=== PATIENT | female | born 1960 | race Two or more races ===

== ENCOUNTER 2024-04-01 19:02 | Emergency (ER) | payer MEDICARE, SELFPAY ==
[2024-04-01 19:02] VITALS: BMI 33.0
[2024-04-01 19:23] VITALS: BP 114/74; PULSE 80; RESP 18; TEMP 36.9; O2SAT 93
--- NOTE | 2024-04-01 19:33 | EKG_ITS ---
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
--- NOTE | 2024-04-01 19:33 | XR_ITS ---
Examination: CT abdomen with intravenous contrast CT pelvis with intravenous contrast 2-D coronal reconstructions 2-D sagittal reconstructions Date and time of exam:April 01, 2024 and 1:00 PM Indications: Abdominal pain vomiting diarrhea beginning 4 days ago Comparison: January 01, 2019. CTDI: vol (mGy) 5.35 DLP: (mGycm) 306 Technique: Multiple axial sections of the abdomen and pelvis have been obtained. 64 slice high-resolution scanner used. 3 mm axial sections have been obtained, post intravenous injection 60 cc [id number] 2-D sagittal, coronal reconstructions obtained. Low dose protocols were performed. One or more of the following dose reduction techniques were used; automated exposure control, adjustment of the mA and/or KV according to patient size, use of iterative reconstruction technique. Findings: Fatty infiltration throughout the liver, no focal liver lesions Spleen is not enlarged No pancreatic mass Gallbladder is not visualized No common bile duct stones Aorta is not enlarged No renal or ureteral calculi, no hydronephrosis Normal appendix No bowel obstruction The entire colon shows hyperemia and wall thickening Absent uterus Retroverted uterus Diffusely sclerotic L3 vertebral body Diffuse sclerosis left iliac bone with small radiolucencies in both posterior iliac bones, the largest osteolytic lesion in the left iliac bone 7 mm image 220 Sclerosis anterior inferior right pubic ramus Impression: Diffuse severe nonspecific colitis pattern Osseous metastatic disease as above, recommend repeat nuclear medicine bone scan and consider PET CT scan follow-up
--- NOTE | 2024-04-01 19:34 | EDRME_ITS ---
Rapid Medical Screening Exam [facility] Arrival date/time: 04/01/24 19:02 63F with history of cholecystectomy, ab hernia (upcoming surgery) and chronic nerve pain presents to ED with several days of worsening gen ab pain, N/V, non- bloody diarrhea, and weakness. Chief Complaint: Nausea/Vomiting/Diarrhea Vital signs: Vital Signs Temperature 98.4 F 04/01/24 19:23 Pulse Rate 80 04/01/24 19:23 Respiratory Rate 18 04/01/24 19:23 Blood Pressure 114/74 04/01/24 19:23 Pulse Oximetry (%) 93 L 04/01/24 19:23 Oxygen Delivery Method Room Air 04/01/24 19:23
--- NOTE | 2024-04-01 19:35 | XR_ITS ---
Examination: PA chest single view Technique: Upright PA chest single view Exam date and time: April 01, 20241952 hrs. Comparison January 30, 2022 Indications: Weakness vomiting beginning 4 days ago. Findings: Normal heart size Right subclavian Port-A-Cath tip SVC satisfactory position No pneumonia or pulmonary edema Impression: No active disease
[2024-04-01 19:58] LABS: Lactate (Lactic Acid) 0.8 mMol/L (0.4-2.0)
[2024-04-01 20:01] LABS: Basophils % (Auto) 0 % (0-2.5); Eosinophils # (Auto) 0.1 Thou/mm3 (0.0-0.5); Eosinophils % (Auto) 1 % (0-10); Hematocrit 40.5 % (36.0-46.0); Hemoglobin 13.7 g/dL (12.0-16.0); Immature Granulocytes % (Auto) 0 % (0-0); Immature Granulocytes Auto 0.02 Thou/mm3 (0.00-0.00); Lymphocytes # (Auto) 2.3 Thou/mm3 (1.0-4.8); Lymphocytes % (Auto) 23 % (10-50); Mean Corpuscular HGB Conc 33.8 g/dl (31.0-37.0); Mean Corpuscular Hemoglobin 31.1 pg (25.0-35.0); Mean Corpuscular Volume 92 fL (80-100); Monocytes # (Auto) 0.7 Thou/mm3 (0.0-0.8); Monocytes % (Auto) 7 % (0-12); Neutrophils # (Auto) 6.9 Thou/mm3 (1.8-7.7); Neutrophils % (Auto) 69 % (37-80); Nucleated Red Blood Cell % 0 /100 WBC (0); Platelet Count 241 Thou/mm3 (140-440); RDW Standard Deviation 40.6 fL (36.4-46.3)
[2024-04-01 20:23] LABS: Albumin, Serum 4.6 gm/dL (3.4-4.8); Albumin/Globulin Ratio 2.1 (1.2-2.2); Alkaline Phosphatase 64 U/L (46-116); Anion Gap 7 (7-16); Aspartate Amino Transferase 19 U/L (0-34); BUN/Creatinine Ratio 12 Ratio (12-20); Bilirubin,Total 0.5 mg/dL (0.3-1.2); Blood Urea Nitrogen 12 mg/dL (9-23); Calcium 9.6 mg/dL (8.3-10.6); Calcium (Corrected) 9.6 mg/dL (8.5-10.1); Carbon Dioxide 32.5 mMol/L (20.0-31.0); Chloride 102 mMol/L (98-107); Estimated Creatinine Clearance 53.5 mL/min (>60); Globulin 2.2 gm/dL (2.3-3.5); Glucose 120 mg/dL (74-106); Lipase 31 U/L (12-53); Osmolality,Calculated 281 (275-295); Potassium 3.4 mMol/L (3.4-5.1); Sodium 141 mMol/L (136-145); Total Protein 6.8 gm/dL (5.7-8.2); Troponin I < 0.020 ng/mL (0.0-0.045); eGFR > 60 See Note
[2024-04-01 20:30] LABS: Alanine Aminotransferase 17 U/L (10-49); Procalcitonin 0.06 ng/ml (0.0-0.49)
[2024-04-01 21:31] LABS: Collection Type, Urine Clean Catch
[2024-04-01 22:10] LABS: Bacteria,Urine Rare; Bilirubin,Urine Negative (Negative); Blood,Urine Trace (Negative); Calcium Oxalate Crystals,Urine 4+; Color,Urine Yellow (Lt Yel-Yel); Culture Indicated,Urine Contaminated; Glucose, Urine Negative (Negative); Hyaline Casts,Urine < 1 /hpf (0-1); Ketones,Urine Trace (Negative); Leukocyte Esterase,Urine Positive (Negative); Nitrite,Urine Negative (Negative); Protein,Urine 1+ (Neg - Trace); RBC,Urine 7 /hpf (0-3); Specific Gravity,Urine 1.043 (1.001-1.035); Squamous Epithelial Cell,Urine 13 /hpf (0-5); WBC,Urine 27 /hpf (0-5)
[2024-04-01 22:11] LABS: Clarity,Urine Hazy (Clear/Hazy)
[2024-04-01] MEDS: SODIUM CHLORIDE 0.9% 1000 ML 1,000 ML 999 ML IV (22:11)
[2024-04-01] MEDS: ONDANSETRON INJ 2 MG/ML INJ 2 ML 4 MG IV (22:11)
[2024-04-02] MEDS: MORPHINE SULF INJ 10 MG/ML VIAL 5 MG IVP (00:05)
--- NOTE | 2024-04-02 01:58 | PD.EDNV ---
Nausea/Vomit./Diarrhea-RME/HPI General Chief complaint: Nausea/Vomiting/Diarrhea Stated complaint: VOMITING/DIARRHEA x 4 DAYS, WEAK Time Seen by Provider: 04/02/24 01:56 Arrival date/time: 04/01/24 19:02 63F with history of cholecystectomy, breast cancer (remission 10 years), ab hernia (upcoming surgery) and chronic nerve pain presents to ED with several days of worsening gen ab pain, N/V, non-bloody diarrhea, and weakness. Limitations: no limitations RME / HPI RME / HPI Narrative: 04/01/24 19:02 63F with history of cholecystectomy, ab hernia (upcoming surgery) and chronic nerve pain presents to ED with several days of worsening gen ab pain, N/V, non-bloody diarrhea, and weakness. Related Data Home Medications ?Medication ?Instructions ?Recorded ?Confirmed paroxetine HCl 20 mg tablet (Paxil) 20 mg PO QAM Depression #0 tabs 11/09/13 01/31/22 clonazepam 0.5 mg tablet 0.5 mg PO BID 01/31/22 01/31/22 gabapentin 300 mg capsule 300 mg PO HS 01/31/22 01/31/22 hydrocodone 10 mg-acetaminophen 1 tab PO Q6HR PRN Pain 01/31/22 01/31/22 325 mg tablet omeprazole 20 mg tablet,delayed 20 mg PO QDAY 01/31/22 01/31/22 release Previous Rx's ?Medication ?Instructions ?Recorded diazepam 2 mg tablet (Valium) 2 mg PO BID PRN anxiety #10 tabs 04/02/24 ondansetron 4 mg disintegrating 4 mg PO Q8H PRN nausea and 04/02/24 tablet vomiting #30 tabs Allergies Allergy/AdvReac Type Severity Reaction Status Date / Time penicillin G Allergy Severe YEAST Verified 04/01/24 19:05 INFECTION Review of Systems Review of Systems Systems Reviewed: All systems reviewed, normal except as documented Constitutional Constitutional: Reports system reviewed and no additional complaints, except as documented, Denies fever(s) and Denies headache(s) ENT Ears, Nose, Mouth, and Throat: Denies disequilibrium and Denies headache(s) Cardiovascular Cardiovascular: Reports system reviewed and no additional complaints, except as documented, Denies chest pain and Denies dyspnea Respiratory Respiratory: Reports system reviewed and no additional complaints, except as documented, Denies cough and Denies dyspnea Gastrointestinal Gastrointestinal: Reports system reviewed and no additional complaints, except as documented, Reports as per HPI, Reports abdominal pain, Reports diarrhea, Reports nausea and Reports vomiting Neurologic Neurologic: Reports system reviewed and no additional complaints, except as documented, Denies confusion, Denies disequilibrium and Denies headache(s) Psychiatric Psychiatric: Denies confusion Past Medical History Past Medical History NEUROLOGIC: Negative Seizures CARDIAC: Positive Cardiac Disorders; Negative Congestive Heart Failure RESPIRATORY: Negative Chronic Obstructive Pulmonary Disease (COPD) or Asthma GASTROINTESTINAL: Positive Ulcer (history of) GENITOURINARY: Negative Renal Disease REPRODUCTIVE: Positive Breast Cancer ENDOCRINE: Negative Diabetes Mellitus Type 1 or Diabetes Mellitus Type 2 HEMATOLOGIC: Negative Sickle Cell Disease PSYCHO/SOCIAL: Positive Depression OTHER HISTORY: Positive Blood Transfusions, Cancer and Breast Cancer; Negative Blood Transfusion Reaction or Anesthesia Reactions Social History SMOKING STATUS: Never smoker SUBSTANCE USE: does not use ED Exam General Limitations: Present no limitations General appearance: Present alert and in no apparent distress Head Head exam: Present atraumatic Eye Eye exam: Present normal appearance, PERRL and EOMI ENT ENT exam: Present normal exam, normal oropharynx and mucous membranes moist Neck Neck exam: Present normal inspection, full ROM and trachea midline Chest Chest inspection: Present normal inspection and symmetric chest wall rise Respiratory Respiratory exam: Present normal lung sounds bilaterally Cardiovascular Cardiovascular exam: Present regular rate, normal rhythm and normal heart sounds Abdominal Exam Abdominal exam: Present soft, tenderness and normal bowel sounds Abdominal tenderness: Present mild Extremities Exam Extremities exam: Present normal inspection and full ROM Back Exam Back exam: Present normal inspection and full ROM Neurological Exam Neurological exam: Present alert, oriented X3 and CN II-XII intact Psychiatric Psychiatric exam: Present normal affect and normal mood Skin Skin exam: Present warm, dry, intact and normal color Course Quality Measures none Orders Category Date Time Status CT Screening NOW Care 04/01/24 19:33 Completed EKG (ED ONLY) *Do not use* NOW Care 04/01/24 19:33 Completed Insert IV NOW Care 04/01/24 19:[address] abdomen pelvis w con Stat Exams 04/01/24 19:33 Completed EKG (ED Only) Stat Exams 04/01/24 19:33 Draft XR chest 1V portable Stat Exams 04/01/24 19:35 Completed CBC Stat Lab 04/01/24 19:45 Completed CMP [Comprehensive Metabolic Panel] Stat Lab 04/01/24 19:45 Completed Lactate (Lactic Acid) Stat Lab 04/01/24 19:45 Completed Lipase Stat Lab 04/01/24 19:45 Completed Procalcitonin Stat Lab 04/01/24 19:45 Completed Troponin I Stat Lab 04/01/24 19:45 Completed Urinalysis, C/S if Indicated Stat Lab 04/01/24 21:04 Completed Diazepam Inj [Valium Inj] Med 04/02/24 02:08 Discontinued 5 mg IVP X1 ONE Morphine Inj Med 04/01/24 23:52 Discontinued 5 mg IVP X1 ONE Ondansetron Inj [Zofran Inj] Med 04/01/24 19:33 Discontinued 4 mg IV X1 ONE Sodium Chloride 0.9% 1000 ml [Ns] 1,000 ml Med 04/01/24 19:33 Discontinued IV 999 mls/hr Vital Signs Vital signs: Vital Signs Temperature 98.4 F 04/01/24 19:23 Pulse Rate 80 04/01/24 19:23 Respiratory Rate 18 04/01/24 19:23 Blood Pressure 114/74 04/01/24 19:23 Pulse Oximetry (%) 93 L 04/01/24 19:23 Oxygen Delivery Method Room Air 04/01/24 19:23 O2 at 93% on RA Nausea/Vomiting/Diarrhea MDM Narrative MDM Narrative:: 63F with history of cholecystectomy, breast cancer (remission 10 years), ab hernia (upcoming surgery) and chronic nerve pain presents to ED with several days of worsening gen ab pain, N/V, non-bloody diarrhea, and weakness. Physical exam reveals mild gen ab tenderness. Patient is afebrile, calm, and alert. CT reveals nonspecific colitis, likely viral in nature. No leukocytosis or leukopenia. CMP unremarkable. Procal/lactate normal. UA contaminated, but no gross UTI. Lipase normal. EKG is NSR. CXR normal. Normal trop. CT also shows possible osteolytic lesions in pelvic bones. PO challenge passed. Spoke to Dr. Miner, resident who states patient can be followed-up outpatient. Her attending Dr. Lyons agrees. Patient also agrees that she will go to cancer center tomorrow morning. Patient requests some anxiety meds after she started crying after finding out her cancer might be back. Patient denies SI/HI. Patient data External records reviewed:: [facility] previous records Clinical information provided by:: patient Social determinants that could affect healthcare access:: none Patient has the following chronic illnesses:: cholecystectomy, breast cancer (remission 10 years), ab hernia (upcoming surgery) and chronic nerve pain How is presenting disease/condition affected by chronic disease/condition?: exacerbated by Evaluation data The following diagnostics were reviewed and interpreted by me:: lab results, radiology exam(s) and EKG tracing(s) Lab and/or radiology exams considered but not ordered:: ordered Interpretation Summary: above Medications / Prescriptions Medications / Prescriptions considered but not ordered:: ordered Medication administrations:: Medication Administration History Discontinued Medications Diazepam (Diazepam Inj 5 Mg/Ml Vial 2 Ml) 5 mg IVP X1 ONE Stop: 04/02/24 02:09 Last Admin: 04/02/24 02:19 Dose: 5 mg Documented By: CARRIE Sodium Chloride (Ns) 1,000 mls @ 999 mls/hr IV .Q1H1M ONE Stop: 04/01/24 20:33 Last Infusion: 04/01/24 23:50 Dose: Infused Documented By: Admin: 04/01/24 22:11 Dose: 999 mls/hr Documented By: GULSHAN Morphine Sulfate (Morphine Sulf Inj 10 Mg/Ml Vial) 5 mg IVP X1 ONE Stop: 04/01/24 23:53 Last Admin: 04/02/24 00:05 Dose: 5 mg Documented By: CARRIE Ondansetron HCl (Ondansetron Inj 2 Mg/Ml Inj 2 Ml) 4 mg IV X1 ONE; Protocol Stop: 04/01/24 19:34 Last Admin: 04/01/24 22:11 Dose: 4 mg Documented By: GULSHAN above Consultations Consultation(s) initiated? (list below): Yes Diagnosis Nausea Differential Diagnosis: traveler's diarrhea, food poisoning, gastroenteritis, clostridium difficile infection, drug-induced nausea and vomiting and dehydration Most likely diagnosis given after review of the tests above:: colitis Admission Indicated Admission indicated?: not indicated Admission Request Was there a request for admission?: Yes Admission Attestation Admission request attestation: Discussed case with [Kristofer] from Hospitalist service regarding admission. Discussed patients ED course, exam findings, labs, and radiology results. The Hospitalist [declines] to accept the patient for admission. Disposition Plan Disposition Plan: Discharge Discharge Attestation Discharge Attestation: The patient and all family members were given an opportunity to ask questions and understood the discharge instructions. Discharge instructions specifically effects, indications for sooner follow up or return to the emergency department, and the expected course of current diagnosis. Patient condition: Stable Discharge Plan Plan Patient Disposition: HOME (Self Care) Disposition Comment: Stable Prescriptions/Referrals Prescriptions/Med Rec: New diazepam [Valium] 2 mg tablet 2 mg PO BID PRN (Reason: anxiety) Qty: 10 0RF ondansetron 4 mg tablet,disintegrating 4 mg PO Q8H PRN (Reason: nausea and vomiting) Qty: 30 0RF No Action paroxetine HCl [Paxil] 20 MG tablet 20 mg PO QAM Qty: 0 hydrocodone-acetaminophen 10-325 mg tablet 1 tab PO Q6HR PRN (Reason: Pain) Patient Comments: TAKE ONE TABLET BY MOUTH EVERY 6 HOURS NEEDED FOR PAIN gabapentin 300 mg capsule 300 mg PO HS Patient Comments: TAKE ONE CAPSULE BY MOUTH EVERY EVENING AT BED TIME clonazepam 0.5 mg Tablet 0.5 mg PO BID omeprazole 20 mg Tablet,Delayed Release (Dr/Ec) 20 mg PO QDAY Referrals: Noy Bennett [Primary Care Provider] - In 1 week Problem List Clinical Impression: Colitis Patient/Caregiver Discharge Instructions Education Materials: Understanding Colitis Additional Instructions: Please follow-up with PCP within 24-48 hours and return immediately if symptoms worsen. Follow-up with PCP for stool culture/testing if symptoms persist. Follow-up with oncologist for repeat bone/PET scan. Stay hydrated. Print Language: Luxembourgish Stand Alone Forms: Patient Portal Info Letter ELIZABETH/TERRENCE Supervising Physician ELIZABETH/TERRENCE Supervising Physician: Dr. Antony
[2024-04-02 02:00] VITALS: BP 139/81; PULSE 84; RESP 18; TEMP 36.9; O2SAT 95
[2024-04-02] MEDS: DIAZEPAM INJ 5 MG/ML VIAL 2 ML IVP (02:19)
== END 2024-04-02 02:33 | disposition home or self-care (01) ==
PROVIDERS: Physician Assistant; Emergency Provider Emergency Medicine; PCP Physician Assistant
DX: K52.9 Noninfective gastroenteritis and colitis, unspecified (principal); R53.1 Weakness; R94.31 Abnormal electrocardiogram [ECG] [EKG]
CPT/HCPCS: 36415; 71045; 74177; 80053; 81001; 83605; 83690; 84145; 84484; 85025; 93005; 96360; 99285; A4649; J2270; J2405; J3360; J7030; Q9967

== ENCOUNTER → 2024-04-10 | Outpatient (CLI) | payer MEDICARE, SELFPAY ==
--- NOTE | 2024-04-10 15:35 | XR_ITS ---
Examination: Knee, right 2 views Technique: Knee AP, lateral, 2 views Date and time of exam: April 10, 2024 1622 hours INDICATIONS: Right knee pain months FINDINGS: Moderate osteopenia. No fracture or dislocation No significant joint narrowing IMPRESSION: No fracture or dislocation No significant arthritic change
--- NOTE | 2024-04-10 15:35 | XR_ITS ---
Examination: Lumbar spine, 5 views Technique: Lumbar spine AP, lateral, coned lateral lower lumbar spine, bilateral obliques 5 views Exam date and time: April 10, 2024 1622 hours INDICATIONS: Low back pain months. FINDINGS: Lumbar levoscoliosis 20 degrees Moderate osteopenia Moderate narrowing hip joints Diffuse advanced facet arthropathy Grade 1 anterolisthesis L4 on L5 No lumbar fracture Diffuse lumbar degenerative disc disease, moderate L3-L4 IMPRESSION: Diffuse lumbar degenerative disc disease, moderate L3-L4
== END | disposition home or self-care (01) ==
PROVIDERS: PCP Nurse Practitioner Family; Referring Provider Nurse Practitioner Family; Visit Provider Nurse Practitioner Family
DX: M25.561 Pain in right knee (principal); M51.369 Other intervertebral disc degeneration, lumbar region without mention of lumbar back pain or lower extremity pain
CPT/HCPCS: 72110; 73560

== ENCOUNTER → 2024-04-15 | Outpatient (CLI) | payer MEDICARE, MEDICAID, SELFPAY ==
--- NOTE | 2024-04-15 15:34 | XR_ITS ---
Examination: Pelvic ultrasound, transabdominal, complete Technique: Transabdominal ultrasound of the pelvis performed using grayscale imaging Date and time of exam: April 15, 2024 1646 hours INDICATIONS: Abdominal pelvic pain beginning 3 weeks ago, chronic kidney disease diagnosis with chronic proteinuria FINDINGS: Uterus 6.3 x 3.0 x 3.9 cm retroverted No uterine mass or intrauterine gestation Endometrial stripe 0.5 cm Right ovary 2.2 x 1.8 x 2.2 cm arterial flow Left ovary obscured by bowel gas IMPRESSION: No uterine mass No adnexal mass
--- NOTE | 2024-04-15 15:34 | XR_ITS ---
Examination: Abdomen sonogram, complete Date and time of exam: April 15, 2024 1656 hours INDICATIONS: Abdominal pain 3 weeks, diagnosis chronic kidney disease with chronic proteinuria. Technique: Multiple real-time grayscale transabdominal sonographic images of the abdomen have been obtained. Findings: Absent gallbladder Common bile duct 0.6 cm no stones Pancreatic head 2.2 cm Aorta not enlarged Liver 13.7 cm fatty infiltration lobular contour no focal liver lesions Normal hepatopedal portal venous flow Patent IVC Right kidney 10.9 x 4.1 x 4.8 cm cortex 2.0 cm Left kidney 10.9 x 4.9 x 4.1 cm cortex 2.0 cm Moderate bilateral renal parenchymal scar formation Spleen 10.4 cm IMPRESSION: Absent gallbladder No common bile duct stones Fatty liver Moderate bilateral renal parenchymal scar formation
== END | disposition home or self-care (01) ==
PROVIDERS: PCP Nurse Practitioner Family; Referring Provider Internal Medicine Nephrology; Visit Provider Internal Medicine Nephrology
DX: N18.30 Chronic kidney disease, stage 3 unspecified (principal); N04.9 Nephrotic syndrome with unspecified morphologic changes; K76.0 Fatty (change of) liver, not elsewhere classified; N28.89 Other specified disorders of kidney and ureter
CPT/HCPCS: 76700; 76856

== ENCOUNTER 2024-04-29 13:07 | Outpatient (RCR) | payer MEDICARE, SELFPAY ==
--- NOTE | 2024-04-23 13:11 | CTCCONSULT_ITS ---
Patient: ANDREA CA : 1960 MR#: [id number] Page 2 of 2 CONSULTATION NOTE DATE OF CONSULTATION: 04/23/2024 NAME: ANDREA CA ACCOUNT: [id number] : 1960 AGE: 63 REFERRING PHYSICIAN: Som Mayo([facility]) PRIMARY PHYSICIAN: Som Mayo([facility]) REASON FOR VISIT: Establish care for cancer ONCOLOGY HISTORY: DIAGNOSIS: Malignant neoplasm of upper-outer quadrant of right female breast [ICD10] C50.411 History of PT 1C, PN 1a, M0, ER positive, DE positive, HER-2/mellissa negative, single focus, intermediate grade invasive ductal carcinoma of the right breast (11/11/2013). S/p right simple mastectomy and sen tinel lymph node biopsy. Ms. Ca has been taking antihormonal therapy intermittently. Currently she is on exemestane. DATE OF DIAGNOSIS: 09/07/2013: Patient had stereotactic core biopsy of the right breast mass. Pathology showed grade 2 inv asive ductal carcinoma ER positive, DE positive, HER-2/mellissa negative. 11/11/2013: Patient had right breast simple mastectomy and sentinel lymph node biopsy. Surgical pathol ogy specimen showed a 1.4 cm intermediate grade infiltrating ductal carcinoma. 2 out of 2 sentinel ly mph nodes were positive for metastatic disease. 12/10/2013?03/29/2014: Patient received 6 cycles of Adriamycin Taxotere and Cytoxan (TAC) chemotherapy . 04/28/2014?06/30/2014: Patient received 6300 cGy radiation to the right chest and right supraclavicular area. After completing the radiation therapy patient was started on anastrozole which she was not abl e to tolerate well. Subsequently it was changed to exemestane. Patient stopped age somewhere in 2022. 04/23/2024 patient is seen in the clinic after being discharged from the hospital. Patient was admitt ed to the hospital with a diarrhea. It is unclear if patient have a diagnosis of ulcerative colitis. 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 At that time scan showed sclerotic lesions and patie nt was advised to follow-up with oncology for concern for recurrence STAGE/TNM: IIA T1c N1a M0 TREATMENT HISTORY: Care?Plan Start?Date Cycle Day Intent DOCEtaxel?75,?DOXOrubicin?50,?Cyclophos?500?+?G?-?Adj 12/10/2013 1 21 Curative?(adjuvant) HISTORY OF PRESENT ILLNESS: 63-year-old female with a history of breast cancer. 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 Tobacco?Use:?Denies ETOH?Use:?Denies Drug?Note:?Denies Social?History?Note:?Lives?with? [employer] HISTORY: Menarche?-?Age:?12 Menopause:?15?yrs?ago :?6 Live?Births:?4 Age?1st?:?15 Gynecological?Note:?2?miscarriages MEDICATIONS: 1. clonazePAM - 1 mg 1 tab Twice a Day 2. dexamethasone - 2 mg 1 tab Daily 3. exemestane - 25 mg 1 tab Daily 4. FLUoxetine - 20 mg 1 tab Daily 5. gabapentin - 300 mg 1 Capsule Twice a Day 6. HYDROcodone-acetaminophen - 10-325 mg 1 tab Every 8 Hours 7. [place] - 10-325 mg 1 tab Every 1 Hours 8. omeprazole - 20 mg 1 Capsule Daily 9. Sudafed - 30 mg 1 tab Every 6 Hours Medications Last Reconciled by Jackie Craig RN on 04/23/2024 ALLERGIES: penicillin V potassium REVIEW OF SYSTEMS: A complete 14-point review of systems was performed and is negative except as noted in interval histo ry. PHYSICAL EXAMINATION: VITAL SIGNS: Temperature?98.5, B/P?126/82, Height?61?inches, Oxygen?Saturation?97% Weight?125?lbs PAIN: 0 - No pain ECOG Performance Status: 1 - Symptomatic; ambulatory; restricted in strenuous activity GENERAL APPEARANCE: Appears well, in no apparent distress, appropriately interactive. HEENT: Normocephalic, no temporal wasting, normal conjunctiva, no scleral icterus, normal hearing, li ps without lesions, neck normal range of motion. CARDIOVASCULAR: Not assessed. PULMONARY: Normal respiratory effort, no respiratory distress or use of accessory muscles, speaking i n full sentences, no tachypnea. EXTREMITIES: No pedal edema or cyanosis. SKIN: Normal skin appearance. NEUROLOGIC: Alert and oriented x4. PSHYCHIATRIC: Patient is crying and in a lot of grief. LABORATORY DATA: I have personally reviewed and interpreted each of the patient?s relevant lab tests, abnormal finding s are below: Date 04/01/24 ??WHITE?BLOOD?COUNT?(Thou/mm3) 10.0 ??RED?BLOOD?COUNT?(Miln/mm3) 4.40 ??HEMOGLOBIN?(gm/dl) 13.7 ??HEMATOCRIT?(%) 40.5 ??PLATELET?COUNT?(Thou/mm3) 241 ??NEUTROPHILS?%,?AUTO?(%) 69 ??LYMPH?%,?AUTO?(%) 23 ??NEUTROPHILS,?AUTO?(Thou/mm3) 6.9 ASSESSMENT/PLAN: #1 concern for recurrence of breast cancer Patient have a history of breast cancer in 2013 and received 5 years of exemestane after completing c hemotherapy Reviewed scans from the hospital and are concerning for sclerotic lesions in the spine likely from re current breast cancer Discussed with Ms. Ca and daughter and extensively counseled Patient needs confirmation of diagnosis with a biopsy PET CT scan to evaluate for metastatic disease and brain MRI to rule out metastatic disease to the brain Patient already have a port Will do labs through the port and flush it Will resume exemestane while waiting for the biopsy results As patient have narrow pain radiating to the right Ithigh, will start dexamethasone 2 mg to alleviate any symptoms of compression Patient do not want to go to the emergency room Last scan was not concerning for compression but clinically patient do have radiating pain to the thi gh but no nerve loss or loss of sensation Also gave omeprazole and advised patient to take dexamethasone with food CBC CMP CA 15-[address] scan brain MRI referral to IR for biopsy Will also refer to radiation good quality first palliation of symptoms once biopsy results are back RETURN TO CLINIC: 2 to 3 weeks BILLING AND COMPLIANCE: I reviewed external records from providers outside my specialty as summarized above. I spent a total of 50 minutes on this patient?s care on the day of their visit excluding time spent related to any bi lled procedures. This time includes time spent with the patient as well as time spent documenting in the medical record, reviewing patients records and tests, obtaining history, placing orders, communi cating with other healthcare professionals, counseling the patient, family or caregiver, and/or care coordination for the diagnoses above. Electronically Signed by: Tony Méndez MD T: 1:08 PM CC: Fito?Ruth,?, Juma?Filomena? PCP: Gael([facility])Som Referring: Gael([facility])Som This document was completed utilizing speech recognition software. Grammatical errors, random word in sertions, pronoun errors, and incomplete sentences are an occasional consequence of this system due t o software limitations, ambient noise, and hardware issues. Any formal questions or concerns about th e content, text or information contained within the body of this dictation should be directly address ed to the provider for clarification.
[2024-04-29 13:58] LABS: Basophils % (Auto) 0 % (0-2.5); Eosinophils # (Auto) 0.1 Thou/mm3 (0.0-0.5); Eosinophils % (Auto) 1 % (0-10); Hematocrit 38.6 % (36.0-46.0); Immature Granulocytes % (Auto) 0 % (0-0); Immature Granulocytes Auto 0.02 Thou/mm3 (0.00-0.00); Lymphocytes # (Auto) 2.7 Thou/mm3 (1.0-4.8); Lymphocytes % (Auto) 35 % (10-50); Mean Corpuscular HGB Conc 33.7 g/dl (31.0-37.0); Mean Corpuscular Volume 92 fL (80-100); Monocytes # (Auto) 0.5 Thou/mm3 (0.0-0.8); Monocytes % (Auto) 7 % (0-12); Neutrophils # (Auto) 4.3 Thou/mm3 (1.8-7.7); Neutrophils % (Auto) 56 % (37-80); Nucleated Red Blood Cell % 0 /100 WBC (0); Platelet Count 282 Thou/mm3 (140-440); RDW Standard Deviation 41.7 fL (36.4-46.3); Red Blood Count 4.19 Miln/mm3 (4.00-5.20); White Blood Count 7.7 Thou/mm3 (3.6-11.0)
[2024-04-29 14:01] LABS: Alanine Aminotransferase 11 U/L (10-49); Albumin, Serum 4.4 gm/dL (3.4-4.8); Albumin/Globulin Ratio 2.1 (1.2-2.2); Alkaline Phosphatase 75 U/L (46-116); Anion Gap 7 (7-16); Aspartate Amino Transferase 18 U/L (0-34); BUN/Creatinine Ratio 30 Ratio (12-20); Bilirubin,Total 0.3 mg/dL (0.3-1.2); Blood Urea Nitrogen 15 mg/dL (9-23); Calcium 9.8 mg/dL (8.3-10.6); Calcium (Corrected) 9.8 mg/dL (8.5-10.1); Carbon Dioxide 29.6 mMol/L (20.0-31.0); Chloride 105 mMol/L (98-107); Creatinine (Component) 0.5 mg/dL (0.6-1.3); Globulin 2.1 gm/dL (2.3-3.5); Glucose 100 mg/dL (74-106); Osmolality,Calculated 283 (275-295); Potassium 3.6 mMol/L (3.4-5.1); Sodium 142 mMol/L (136-145); Total Protein 6.5 gm/dL (5.7-8.2); eGFR > 60 See Note
== END 2024-05-01 23:59 | disposition home or self-care (01) ==
LOC: SCTC 13:07
PROVIDERS: PCP Nurse Practitioner Family; Referring Provider Nurse Practitioner Family; Visit Provider Internal Medicine Hematology & Oncology
DX: M89.9 Disorder of bone, unspecified (principal); Z85.3 Personal history of malignant neoplasm of breast; M79.651 Pain in right thigh
CPT/HCPCS: 36591; 80053; 85025; 86300; 99213; A4216; J1642; G0463

== ENCOUNTER → 2024-05-08 | Outpatient (CLI) | payer MEDICARE, SELFPAY ==
--- NOTE | 2024-05-08 16:00 | XR_ITS ---
Examination: MRI of brain without intravenous contrast. MRI brain with intravenous contrast. Date and time of exam:May 1712 hrs. Indications: Diagnosis malignant neoplasm upper outer quadrant right female breast, headaches blurred vision dizziness 2 years Technique: Multiple axial and sagittal images of the brain to been obtained. Siemens high-resolution 1.52 Rosemary short bore scanner utilized. Sagittal sections, T1 weighted images, TR 500, TE 14, are performed. Axial sections proton-density and T2-weighted images have been obtained. Inversion recovery axial images, TR 9260, TE 111, TR 2500. Diffusion weighted images, axial sections, TR 4800, TE 128, B value 1000. Axial sections, ADC map, TR 4800, TE 128. Axial and coronal images were also obtained post 11 cc gadolinium administered intravenously. Findings:: Enlargement of the sella turcica is not present. The optic chiasm and infundibular stalk are not remarkable. There is no localized enlargement of the medulla or fritz. Fourth ventricle and cerebellar tonsils appear normal in position. No subacute area of hemorrhage density is seen. Fourth ventricle is midline. Mass in the cerebellopontine angle region is not evident. 7th and 8th nerve complexes exhibit symmetry Globes are symmetrical Orbital musculature including medial lateral rectus muscles do not exhibit abnormality Increased white matter signal is mild Effacement of the cortical sulcal markings is not identified. Mass effect upon the ventricular system is not identified. Diffusion-weighted images demonstrate no focus of restricted diffusion Contrast images demonstrate no abnormal enhancement Impression: Negative for acute hemorrhage mass effect or midline shift No acute infarct Mild chronic microvascular white matter change No abnormal enhancing cerebellar or cerebral lesions Significant chronic pansinusitis Mild bilateral mastoiditis
--- NOTE | 2024-05-08 16:13 | EKG_ITS ---
[facility] Test Date: 2024-05-08 Pat Name: ANDREA CA Department: Room: - Gender: Female Supervisor Receiving And Processing: RT STUDENT : 1960 Requested By: Tony Méndez Order Number: [id number] Reading MD: Tony Méndez Measurements Intervals [place] Rate: 74 P: 42 ND: 144 QRS: 33 QRSD: 87 T: 30 QT: 405 QTc: 450 Interpretive Statements SINUS RHYTHM Compared to ECG 04/01/2024 19:41:55 No significant changes /store/S0/[id number]/[id number]
--- NOTE | 2024-05-08 16:45 | XR_ITS ---
Examination: MRI lumbar spine, without intravenous contrast. MRI lumbar spine , with intravenous contrast. Exam date and time: May 08, 2024 at 1712 hrs. Indications: Diagnosis malignant neoplasm upper outer quadrant right female breast, onset lower back pain radiating to the right buttock and right leg beginning 18 months ago Technique: Multiple axial, sagittal and coronal images of the lumbar spine have been obtained with the Siemens high-resolution 1.5 Rosemary MRI scanner. Images obtained included T2 weighted fat suppressed sagittal sections, TR 3500, TE 46, T2 weighted coronal fat suppressed images, TR 3050, TE 84, T2-weighted transverse fat suppressed images, TR 30-60, TE 63, proton density transverse images, TR 4720, TE 46, and T1 weighted coronal images, TR 560, TE 13. Axial, sagittal and coronal images are obtained post intravenous injection 11 cc gadolinium. Findings: Adequate alignment lumbar vertebral bodies on the lateral view Postcontrast images demonstrate subtle multiple areas of enhancement throughout all visualized osseous structures No enhancing epidural conus medullaris or cauda equina lesions L5-S1 no disc protrusion L4-L5 2 mm central lumbar disc bulge L3-L4 3 mm central lumbar disc bulge L2-L3 no disc protrusion Impression: Suspicious for widespread osseous metastatic disease Recommend follow-up coned body bone scan No enhancing epidural tumor impinging upon the conus medullaris or cauda equina
== END | disposition home or self-care (01) ==
PROVIDERS: PCP Nurse Practitioner Family; Referring Provider Internal Medicine Hematology & Oncology; Visit Provider Internal Medicine Hematology & Oncology
DX: R90.82 White matter disease, unspecified (principal); J32.4 Chronic pansinusitis; H70.93 Unspecified mastoiditis, bilateral; C50.411 Malignant neoplasm of upper-outer quadrant of right female breast
CPT/HCPCS: 70553; 72158; 93005; A9579

== ENCOUNTER → 2024-05-14 | Outpatient (CLI) | payer MEDICARE, MEDICAID, SELFPAY ==
--- NOTE | 2024-05-14 08:45 | XR_ITS ---
EXAMINATION: PET/CT FUSION SKULL TO THIGH EXAM DATE AND TIME: May 14, 2024 0954 hours INDICATIONS: Diagnosis breast cancer prior to treatment CTDI:vol (mGy) 2.82 DLP: (mGycm) 57.92 PROCEDURE: 15.78 mCi FDG was administered intravenously To allow for distribution and uptake of radiotracer, the patient was allowed to rest quietly in a shielded room. Imaging was performed on an integrated 16-slice PET/CT scanner, with scanning from the skull base to the mid thigh. Serum blood glucose at the time of the injection was measured 101 mg/dL. CT scanning was performed without oral or intravenous contrast material. FINDINGS: Head and Neck: There is no ning hypermetabolism in the neck. The visualized portions of the brain are normal in appearance on CT. Chest: There is no ning hypermetabolism in the chest. There are no pulmonary nodules. Right mastectomy Abdomen and Pelvis: There is no ning hypermetabolism in retroperitoneal or pelvic chains. The spleen is normal in size and FDG avidity. Musculoskeletal: Marrow uptake is within normal range. IMPRESSION: No hypermetabolic lymphadenopathy No hypermetabolic osseous lesions, however, please see the MRI lumbar spine May 08, 2024 recommending whole body bone scan
== END | disposition home or self-care (01) ==
PROVIDERS: PCP Nurse Practitioner Family; Referring Provider Internal Medicine Hematology & Oncology; Visit Provider Internal Medicine Hematology & Oncology
DX: C50.411 Malignant neoplasm of upper-outer quadrant of right female breast (principal)
CPT/HCPCS: 78815; A9552

== ENCOUNTER 2024-05-27 08:53 | Outpatient (CLI) | payer MEDICARE, SELFPAY ==
[2024-05-25 13:18] VITALS: BMI 24.6
[2024-05-26 14:55] LABS: Basophils % (Auto) 0 % (0-2.5); Eosinophils % (Auto) 0 % (0-10); Hematocrit 43.5 % (36.0-46.0); Hemoglobin 14.8 g/dL (12.0-16.0); Immature Granulocytes % (Auto) 0 % (0-0); Immature Granulocytes Auto 0.02 Thou/mm3 (0.00-0.00); Lymphocytes # (Auto) 1.9 Thou/mm3 (1.0-4.8); Lymphocytes % (Auto) 25 % (10-50); Mean Corpuscular Volume 91 fL (80-100); Monocytes # (Auto) 0.5 Thou/mm3 (0.0-0.8); Monocytes % (Auto) 7 % (0-12); Neutrophils # (Auto) 4.9 Thou/mm3 (1.8-7.7); Neutrophils % (Auto) 67 % (37-80); Nucleated Red Blood Cell % 0 /100 WBC (0); Platelet Count 307 Thou/mm3 (140-440); RDW Standard Deviation 41.6 fL (36.4-46.3); Red Blood Count 4.77 Miln/mm3 (4.00-5.20); White Blood Count 7.3 Thou/mm3 (3.6-11.0)
[2024-05-26 15:01] LABS: Blood Urea Nitrogen 15 mg/dL (9-23); Creatinine (Component) 0.8 mg/dL (0.6-1.3); Estimated Creatinine Clearance 54.8 mL/min (>60); eGFR > 60 See Note
[2024-05-26 15:02] LABS: Partial Thromboplastin Time 24.9 Seconds (22.0-36.0); Prothrombin Time 10.6 Seconds (9.0-12.2)
[2024-05-26 16:02] LABS: COVID-19 Antigen (In-House) Negative (Negative)
[2024-05-27] VITALS (11 sets, daily range): BP systolic 120–145; BP diastolic 68–88; PULSE 77–92; RESP 14–20; TEMP 36.8–37.1; O2SAT 95–100
--- NOTE | 2024-05-27 09:30 | XR_ITS ---
Exam: CT-guided left iliac bone biopsy and bone marrow aspiration DATE 05/27/2024, 9:40 AM INDICATION: Left posterior iliac bone lytic lesion, evaluate for metastasis. CTDI: 50.3 DLP: 870 Procedure: After discussing the risk and benefits informed consent was obtained. The patient was brought to the CT scanner and placed in the prone position. Preliminary noncontrast enhanced CT demonstrated a 6 mm lytic lesion posterior left iliac bone. This was targeted for biopsy. The overlying skin was cleaned and draped in normal sterile surgical fashion. 10 cc's of 1% lidocaine local anesthesia. Conscious sedation was begun with direct continuous nursing supervision. Using CT guidance a 10-gauge needle biopsy system was sequentially advanced into the targeted area. A single 14-gauge core bone biopsy sample was obtained. The needle was withdrawn. Hemostasis was achieved. The access site was covered with sterile dressing. Postbiopsy CT was performed which showed no evidence of bony injury or other complication. Patient tolerated procedure well and was transferred to the holding area for post procedural observation. Impression: Successful posterior left iliac bone biopsy and bone marrow aspiration as above.
[2024-05-27] MEDS: SODIUM CHLORIDE 0.9% 250 ML 250 ML 20 ML IV (09:40)
[2024-05-27] MEDS: fentaNYL CIT INJ 50 mCg/ML AMP 2ML 100 MCG IVP (10:01)
[2024-05-27] MEDS: MIDAZOLAM INJ 1 MG/ML VIAL 2 ML IV (10:01)
[2024-05-27] MEDS: LIDOCAINE INJ PF 1% 30 ML VIAL 20 ML EPID (10:03)
== END 2024-05-27 11:13 | disposition home or self-care (01) ==
PROVIDERS: Radiology Diagnostic Radiology; PCP Nurse Practitioner Family; Referring Provider Internal Medicine Hematology & Oncology; Visit Provider Internal Medicine Hematology & Oncology
DX: M89.9 Disorder of bone, unspecified (principal); C50.411 Malignant neoplasm of upper-outer quadrant of right female breast; Z01.812 Encounter for preprocedural laboratory examination
CPT/HCPCS: 20220; 36415; 77012; 82565; 84520; 85025; 85610; 85730; 87811; 99152; 99153; A4649; J2250; J3010; J3490; J7050

== ENCOUNTER → 2024-05-28 | Outpatient (CLI) | payer MEDICARE, SELFPAY ==
--- NOTE | 2024-05-28 13:20 | XR_ITS ---
Examination: Bone densitometry Date and time of exam:May 28, 2024 1315 hrs. Indications: Menopause age 48 breast carcinoma diagnosis, personal history osteoporosis Technique: Lumbar spine and hip total bone mineralization values of an calculated. Peak reference and age match control results have been displayed. Findings: Lumbar spine total bone mineralization is0.791 gm/cm2. This is 2.3 standard deviations below peak reference. This is 0.5 standard deviations below age-matched controls. Hip total bone mineralization is 0.703 gm/cm2 This is 1.9 standard deviations below peak reference. This is 0.8 standard deviations below age-matched controls Impression: There is osteopenia based on lumbar spine measurements. There is osteopenia based on hip measurements Lumbar mineralization is decreased 0.6% compared with March 07, 2017 Hip mineralization is decreased 1.6% compared with March 07, 2017
== END | disposition home or self-care (01) ==
PROVIDERS: Referring Provider Nurse Practitioner Family; Visit Provider Nurse Practitioner Family
DX: M85.89 Other specified disorders of bone density and structure, multiple sites (principal)
CPT/HCPCS: 77080

== ENCOUNTER 2024-06-24 10:15 | Outpatient (RCR) | payer MEDICARE, SELFPAY ==
--- NOTE | 2024-06-03 13:57 | CTCFLWUP_ITS ---
[facility] [address] [place], [place] [address] FOLLOW-UP NOTE Date: 06/03/2024 MR#: [id number] Name: ANDREA CA : 1960 Dx: C50.411 Malignant neoplasm of upper-outer quadrant of right female breast Identification. Patient with T1cN1 with 2 sentinel lymph nodes removed which were involved with positive nodes. ER/IL positive HER2 negative by FISH. Underwent right total mastectomy and postop chemo followed ration therapy to regional nodes and chest wall completed for 04/2014. Initially prescribed letrozole Aromasin and currently on exemestane. Most recent MRI 05/08/2024 of L-spine suggested bone mets. PET scan 05/14/2024 showed osseous issues not being hypermetabolic. Underwent CT-guided left iliac bone biopsy 05/27/2024 revealing hypocellular marrow with no malignancy identified. Dr. Méndez has ordered Matera testing to check for circulating tumor DNA cells also pending.. Patient is having significant L-spine pain which the primary care physician is currently giving oxycodone with inadequate relief thus far. Once firm evidence of mets is confirmed I told family that I could become more involved with radiation therapy or pharmacological support. I have scheduled patient for follow-up for 2 months. Electronically signed by: Juma Butt M.D. 06/03/2024 1:55 PM
--- NOTE | 2024-06-28 23:56 | CTCFLWUP_ITS ---
Patient: ANDREA CA : 1960 Page 3 of 4 FOLLOW UP NOTE DATE OF SERVICE: 06/24/2024 NAME: ANDREA CA ACCOUNT: [id number] : 1960 AGE: 64 INTERVAL HISTORY: Patient is here for follow-up. Back pain is persistent. It has gotten better since starting steroid. Patient is requesting referral for outside opinion. ONCOLOGY HISTORY: DIAGNOSIS: Malignant neoplasm of upper-outer quadrant of right female breast [ICD10] C50.411 History of PT 1C, PN 1a, M0, ER positive, AL positive, HER-2/mellissa negative, single focus, intermediate grade invasive ductal carcinoma of the right breast (11/11/2013). S/p right simple mastectomy and sentinel lymph node biopsy. Ms. Ca has been taking antihormonal therapy intermittently. Currently she is on exemestane. DATE OF DIAGNOSIS: 09/07/2013: Patient had stereotactic core biopsy of the right breast mass. Pathology showed grade 2 invasive ductal carcinoma ER positive, AL positive, HER-2/mellissa negative. 11/11/2013: Patient had right breast simple mastectomy and sentinel lymph node biopsy. Surgical pathology specimen showed a 1.4 cm intermediate grade infiltrating ductal carcinoma. 2 out of 2 sentinel lymph nodes were positive for metastatic disease. 12/10/2013?03/29/2014: Patient received 6 cycles of Adriamycin Taxotere and Cytoxan (TAC) chemotherapy. 04/28/2014?06/30/2014: Patient received 6300 cGy radiation to the right chest and right supraclavicular area. After completing the radiation therapy patient was started on anastrozole which she was not able to tolerate well. Subsequently it was changed to exemestane. Patient stopped age somewhere in 2022. 04/23/2024 patient is seen in the clinic after being discharged from the hospital. Patient was admitted to the hospital with a diarrhea. It is unclear if patient have a diagnosis of ulcerative colitis. Patient is yet to see her evaluation manager. At that time scan showed sclerotic lesions and patient was advised to follow-up with oncology for concern for recurrence STAGE/TNM: IIA T1c N1a M0 TREATMENT HISTORY: Care?Plan Start?Date Cycle Day Intent DOCEtaxel?75,?DOXOrubicin?50,?Cyclophos?500?+?G?-?Adj 12/10/2013 1 21 Curative?(adjuvant) HISTORY OF PRESENT ILLNESS: 64-year-old female with a history of breast cancer. 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 Tobacco?Use:?Denies ETOH?Use:?Denies Drug?Note:?Denies Social?History?Note:?Lives?with? [facility] HISTORY: Menarche?-?Age:?12 Menopause:?15?yrs?ago :?6 Live?Births:?4 Age?1st?:?15 Gynecological?Note:?2?miscarriages MEDICATIONS: 1. clonazePAM - 1 mg 1 tab Twice a Day 2. dexamethasone - 2 mg 1 tab Daily 3. exemestane - 25 mg 1 tab Daily 4. FLUoxetine - 20 mg 1 tab Daily 5. gabapentin - 300 mg 1 Capsule Twice a Day 6. HYDROcodone-acetaminophen - 10-325 mg 1 tab Every 8 Hours 7. Onaway - 10-325 mg 1 tab Every 1 Hours 8. omeprazole - 20 mg 1 Capsule Daily 9. Sudafed - 30 mg 1 tab Every 6 Hours Medications Last Reconciled by Leslee Berkowitz MA on 06/24/2024 ALLERGIES: penicillin V potassium REVIEW OF SYSTEMS: A complete 14-point review of systems was performed and is negative except as noted in interval history. PHYSICAL EXAMINATION: VITAL SIGNS: Temperature?98.3, B/P?121/82, Oxygen?Saturation?94% PAIN: 4 - Moderate pain GENERAL APPEARANCE: Appears well, in no apparent distress, appropriately interactive. HEENT: Normocephalic, no temporal wasting, normal conjunctiva, no scleral icterus, normal hearing, lips without lesions, neck normal range of motion. CARDIOVASCULAR: Not assessed. PULMONARY: Normal respiratory effort, no respiratory distress or use of accessory muscles, speaking in full sentences, no tachypnea. EXTREMITIES: No pedal edema or cyanosis. SKIN: Normal skin appearance. NEUROLOGIC: Alert and oriented x4. No point tenderness on the spine PSHYCHIATRIC: Patient is crying and in a lot of grief. LABORATORY DATA: I have personally reviewed and interpreted each of the patient?s relevant lab tests, abnormal findings are below: Date 04/29/24 2 ??WHITE?BLOOD?COUNT?(Thou/mm3) ? 7.3 ??RED?BLOOD?COUNT?(Miln/mm3) ? 4.77 ??HEMOGLOBIN?(gm/dl) ? 14.8 ??HEMATOCRIT?(%) ? 43.5 ??PLATELET?COUNT?(Thou/mm3) ? 307 ??NEUTROPHILS?%,?AUTO?(%) ? 67 ??LYMPH?%,?AUTO?(%) ? 25 ??NEUTROPHILS,?AUTO?(Thou/mm3) ? 4.9 ??GLUCOSE,RANDOM?(mg/dL) 100 ? ??BLOOD?UREA?NITROGEN?(mg/dL) 15 15 ??CREATININE?(mg/dL) 0.50?L 0.80 ??SODIUM?(mmol/L) 142 ? ??POTASSIUM?(mmol/L) 3.6 ? ??CHLORIDE?(mmol/L) 105 ? ??CrCl?(CandG)?(ml/min) 99.22 ? ??AST/SGOT?(Unit/L) 18 ? ??ALT/SGPT?(Unit/L) 11 ? ??ALKALINE?PHOSPHATASE?(Unit/L) 75 ? ??BILIRUBIN,?TOTAL?(mg/dL) 0.3 ? ??PROTEIN?TOTAL?(gm/dl) 6.5 ? ??ALBUMIN,?SERUM?(gm/dl) 4.4 ? ??GLOBULIN?(gm/dl) 2.1?L ? ??ALBUMIN/GLOBULIN?RATIO 2.1 ? ??CALCIUM,?SERUM?(mg/dL) 9.8 ? ??CALCIUM?SERUM?(CORRECTED)?(mg/dL) 9.8 ? ASSESSMENT/PLAN: #1 concern for recurrence of breast cancer Patient have a history of breast cancer in 2013 and received 5 years of exemestane after completing chemotherapy Reviewed scans from the hospital and are concerning for sclerotic lesions in the spine likely from recurrent breast cancer Discussed with Ms. Ca and daughter and extensively counseled Patient needs confirmation of diagnosis with a biopsy PET CT scan to evaluate for metastatic disease and brain MRI to rule out metastatic disease to the brain Patient already have a port Will do labs through the port and flush it Will resume exemestane while waiting for the biopsy results Will continue dexamethasone also gave omeprazole and advised patient to take dexamethasone with food CBC CMP CA 15-[address] scan brain MRI referral to IR for biopsy Will also refer to radiation good quality first palliation of symptoms once biopsy results are back Patient will like to go outside [facility] 4 x 4 interventional radiology to biopsy the bone lesion Will send to [place] for second opinion Will order a bone scan ORDERS: Order # Description [id number] Bone Scan, Whole body [id number] Comprehensive Metabolic Panel - 12 + CBC with Auto Diff [id number] Follow Up RETURN TO CLINIC: 2 to 3 weeks with the results BILLING AND COMPLIANCE: I reviewed external records from providers outside my specialty as summarized above. I spent a total of 50 minutes on this patient?s care on the day of their visit excluding time spent related to any billed procedures. This time includes time spent with the patient as well as time spent documenting in the medical record, reviewing patients records and tests, obtaining history, placing orders, communicating with other healthcare professionals, counseling the patient, family or caregiver, and/or care coordination for the diagnoses above. Electronically Signed by: Tony Méndez MD T: 11:53 PM CC: Fito?FRED Miranda Owen?Filomena? PCP: Myesha Miranda Referring: Myesha Miranda This document was completed utilizing speech recognition software. Grammatical errors, random word insertions, pronoun errors, and incomplete sentences are an occasional consequence of this system due to software limitations, ambient noise, and hardware issues. Any formal questions or concerns about the content, text or information contained within the body of this dictation should be directly addressed to the provider for clarification.
== END 2024-06-29 23:59 | disposition home or self-care (01) ==
LOC: SCTC 10:15
PROVIDERS: PCP Family Medicine; Referring Provider Family Medicine; Visit Provider Radiology Therapeutic Radiology
DX: C50.412 Malignant neoplasm of upper-outer quadrant of left female breast (principal); Z17.0 Estrogen receptor positive status [ER+]; Z17.21 Progesterone receptor positive status; Z17.32 Human epidermal growth factor receptor 2 negative status; Z90.11 Acquired absence of right breast and nipple; Z92.3 Personal history of irradiation; Z79.811 Long term (current) use of aromatase inhibitors
CPT/HCPCS: 36591; 99212; 99213; A4216; J1642; G0463

== ENCOUNTER → 2024-07-15 | Outpatient (CLI) | payer MEDICARE, SELFPAY ==
--- NOTE | 2024-07-15 14:00 | ECHO_ITS ---
Transthoracic Echo Report Ht (in): 61 Wt (lb): 120 Exam Location: Echo Lab Status: Preadmit Distribution Engineering Technologist: MALDONADO Ospina^^^^ Indications: Procedure Performed: BP: / HR: MEASUREMENTS (Male / Female) Normal Values 2D ECHO LV Diastolic Diameter PLAX 4.5 cm 4.2 - 5.9 / 3.9 - 5.3 cm LV Systolic Diameter PLAX 3.0 cm IVS Diastolic Thickness 0.7 cm 0.6 - 1.0 / 0.6 - 0.9 cm LVPW Diastolic Thickness 0.8 cm 0.6 - 1.0 / 0.6 - 0.9 cm LV Relative Wall Thickness 0.3 LVOT Diameter 1.9 cm Aortic Root Diameter 3.1 cm LA Systolic Diameter LX 3.0 cm 3.0 - 4.0 / 2.7 - 3.8 cm LV Ejection Fraction MOD 4C 61.0 % LV Ejection Fraction 4C AL 62.9 % LV Ejection Fraction MOD 2C 60.0 % LV Ejection Fraction 2C AL 60.2 % LA Volume Index 25.6 cm?/m? 16 - 28 cm?/m? Ascending Aorta Diameter 3.2 cm DOPPLER AV Peak Velocity 132.7 cm/s AV Peak Gradient 7.0 mmHg AV Mean Gradient 4.3 mmHg AV Velocity Time Integral 27.5 cm AI Peak Velocity 398.8 cm/s AI Peak Gradient 63.6 mmHg AI Pressure Half Time 711.3 ms LVOT Peak Velocity 92.7 cm/s LVOT Peak Gradient 3.4 mmHg LVOT Velocity Time Integral 21.2 cm AV Area Cont Eq vti 2.2 cm? AV Area Cont Eq pk 2.0 cm? MV Area PHT 3.3 cm? MR Peak Velocity 530.0 cm/s MR Peak Gradient 112.4 mmHg Mitral E Point Velocity 61.9 cm/s Mitral A Point Velocity 80.8 cm/s Mitral E to A Ratio 0.8 TR Peak Velocity 255.3 cm/s TR Peak Gradient 26.1 mmHg PV Peak Velocity 87.5 cm/s PV Peak Gradient 3.1 mmHg RVOT Peak Velocity 49.5 cm/s FINDINGS Left Ventricle Normal left ventricular size, wall thickness, systolic function with no obvious regional wall motion abnormalities. There is grade I diastolic dysfunction of the left ventricle (impaired relaxation pattern). The left ventricular ejection fraction is normal, estimated at 55-60%. Right Ventricle The right ventricle is normal in size and systolic function. The estimated right ventricular systolic pressure, 39 mmHg. Left Atrium The left atrium is normal by two-dimensional, color flow and Doppler imaging with no structural abnormalities, no thrombus formation present. Right Atrium The right atrium is normal by two-dimensional imaging, color flow and Doppler imaging with no structural abnormalities, no thrombus formation present. Atrial Septum The interatrial septum appears normal with no evidence of a shunt. Aorta The aorta is normal by two-dimensional, color flow and Doppler interrogation. Mitral Valve Mild mitral regurgitation. Mild mitral annular calcification. Aortic Valve Mild aortic valve regurgitation. Tricuspid Valve There is mild tricuspid valve regurgitation. Pulmonic Valve Trivial pulmonic valve regurgitation. Vessels The pulmonary artery appears normal. The inferior vena cava pulmonary and hepatic veins appear normal. Pericardium The pericardium is normal by two-dimensional imaging. There is no significant pericardial effusion. CONCLUSIONS Indication: Malignant neoplasm of upper-outer quadrant of right female breast Normal LV size and function with an estimated EF of 55 to 60%. Stage I diastolic dysfunction. Normal RV size and function. Estimated RVSP mildly elevated at 39 mmHg. Mild AI with mild TR, trace MR as well as mild MAC. No evidence of any pericardial effusion Xander Jasmine (Electronically Signed) Final Date: 18 July 2024 05:59
== END | disposition home or self-care (01) ==
LOC: SDIM 13:32
PROVIDERS: Referring Provider Internal Medicine Hematology & Oncology; Visit Provider Internal Medicine Hematology & Oncology
DX: I08.3 Combined rheumatic disorders of mitral, aortic and tricuspid valves (principal); C50.411 Malignant neoplasm of upper-outer quadrant of right female breast
CPT/HCPCS: 93306

== ENCOUNTER → 2024-07-24 | Outpatient (CLI) | payer MEDICARE, SELFPAY ==
--- NOTE | 2024-07-24 | XR_ITS ---
Examination: Bone scan whole body, radioisotope Date and time of exam: July 24, 2024 1342 hours INDICATIONS: Diagnosis malignant neoplasm upper outer quadrant right female breast COMPARISON: April 11, 2022 Technique: Study has been performed with intravenous administration of 24 mci 99M technetium MDP. Anterior, posterior whole body images are obtained. Images have been obtained including the lower extremities. Findings: Increased isotope examination on the posterior view over the sacrum and medial iliac bones as well as the lower 2 lumbar vertebral bodies IMPRESSION: Positive bone scan although nonspecific Recommend plain film AP pelvis, 5 views standard lumbar spine series follow-up
== END | disposition home or self-care (01) ==
PROVIDERS: PCP Nurse Practitioner Family; Referring Provider Internal Medicine Hematology & Oncology; Visit Provider Internal Medicine Hematology & Oncology
DX: R93.7 Abnormal findings on diagnostic imaging of other parts of musculoskeletal system (principal); C50.411 Malignant neoplasm of upper-outer quadrant of right female breast
CPT/HCPCS: 78306; A9503

== ENCOUNTER → 2024-08-21 | Outpatient (CLI) | payer MEDICARE, SELFPAY ==
--- NOTE | 2024-08-21 12:43 | XR_ITS ---
Examination: AP pelvis single view TECHNIQUE: AP supine pelvis single view Date and time: August 21, 2024 1315 hours Comparison July 31, 2023 INDICATIONS: Bilateral hip pain 3 years, diagnosis malignant neoplasm upper outer quadrant right breast, positive nuclear medicine bone scan over the sacrum and medial iliac bones on July 24, 2024 FINDINGS: Moderate osteopenia Moderate narrowing hip joints No fracture Subtle sclerosis in the right iliac bone above the right acetabulum IMPRESSION: Subtle sclerosis 10 mm in the right iliac bone above the right hip As clinically warranted, consider MRI pelvis pre and post contrast follow-up
== END | disposition home or self-care (01) ==
PROVIDERS: PCP Nurse Practitioner Family; Referring Provider Internal Medicine Hematology & Oncology; Visit Provider Internal Medicine Hematology & Oncology
DX: M89.8X8 Other specified disorders of bone, other site (principal); C50.411 Malignant neoplasm of upper-outer quadrant of right female breast
CPT/HCPCS: 72170

== ENCOUNTER 2024-10-24 18:46 | Emergency (ER) | payer MEDICARE, SELFPAY ==
[2024-10-24 18:50] VITALS: BMI 26.2
[2024-10-24 19:00] VITALS: BP 120/70; PULSE 82; RESP 16; TEMP 36.7; O2SAT 95
--- NOTE | 2024-10-24 19:04 | XR_ITS ---
Examination: CT brain head without contrast. 2-D sagittal coronal reconstructions Date and time of exam:October 24, 20242000 hours INDICATIONS: Head injury today CTDI: vol (mGy):45.20 DLP: (mGycm):954 Technique: Multiple CT axial sections of the brain have been obtained, 5 mm slice thickness. Contrast has not been administered. 2-D sagittal, coronal reconstructions have been obtained Low dose protocols were performed. One or more of the following dose reduction techniques were used; automated exposure control, adjustment of the mA and/or KV according to patient size, use of iterative reconstruction technique. Findings: No significant ventricular enlargement. Intra-axial or extra-axial hemorrhage density is not seen. No mass effect or midline shift Basal cisterns are not remarkable. Fourth ventricle is midline. Cranial vault intact. Impression: Negative for acute hemorrhage, mass effect or midline shift
--- NOTE | 2024-10-24 19:04 | EKG_ITS ---
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
--- NOTE | 2024-10-24 19:06 | EDRME_ITS ---
Rapid Medical Screening Exam RME Arrival date/time: 10/24/24 18:46 This is a case of 64-year-old female who was brought by the son for possible overdose of [place] son states that patient took 30 tablets of [place] for pain in addition they found the patient fell from the bed unknown loss of consciousness no other injury noted Chief Complaint: Fall Time Seen by Provider: 10/24/24 19:24 Vital signs: Vital Signs Temperature 98.1 F 10/24/24 19:00 Pulse Rate 82 10/24/24 19:00 Respiratory Rate 16 10/24/24 19:00 Blood Pressure 120/70 10/24/24 19:00 Pulse Oximetry (%) 95 10/24/24 19:00 Oxygen Delivery Method Room Air 10/24/24 19:00
[2024-10-24 19:22] LABS: Basophils # (Auto) 0.0 Thou/mm3 (0.0-0.2); Basophils % (Auto) 0 % (0-2.5); Eosinophils # (Auto) 0.0 Thou/mm3 (0.0-0.5); Eosinophils % (Auto) 0 % (0-10); Hematocrit 37.8 % (36.0-46.0); Hemoglobin 12.2 g/dL (12.0-16.0); Immature Granulocytes Auto 0.07 Thou/mm3 (0.00-0.00); Lymphocytes # (Auto) 1.9 Thou/mm3 (1.0-4.8); Lymphocytes % (Auto) 11 % (10-50); Mean Corpuscular HGB Conc 32.3 g/dl (31.0-37.0); Mean Corpuscular Hemoglobin 31.9 pg (25.0-35.0); Mean Corpuscular Volume 99 fL (80-100); Monocytes # (Auto) 0.7 Thou/mm3 (0.0-0.8); Monocytes % (Auto) 4 % (0-12); Neutrophils # (Auto) 14.2 Thou/mm3 (1.8-7.7); Neutrophils % (Auto) 84 % (37-80); Nucleated Red Blood Cell # 0.00 Thou/mm3 (0.00-0.00); Nucleated Red Blood Cell % 0 /100 WBC (0); Platelet Count 207 Thou/mm3 (140-440); RDW Standard Deviation 46.6 fL (36.4-46.3); Red Blood Count 3.82 Miln/mm3 (4.00-5.20); White Blood Count 16.8 Thou/mm3 (3.6-11.0)
[2024-10-24 19:24] VITALS: BP 121/73; PULSE 84; RESP 12; TEMP 38.2; O2SAT 97
--- NOTE | 2024-10-24 19:36 | EDNOTE_ITS ---
ED Fall Injury RME/HPI General Chief Complaint: Fall Stated Complaint: FOUND ON GROUND, TROUBLE SPEAKING,FALLING Time Seen by Provider: 10/24/24 19:24 Arrival date/time: 10/24/24 18:46 RME / HPI RME / HPI Narrative: 10/24/24 18:46 This is a case of 64-year-old female who was brought by the son for possible overdose of Hollister son states that patient took 30 tablets of Hollister for pain in addition they found the patient fell from the bed unknown loss of consciousness no other injury noted DR. ROSSI MAIN ED EVALUATION: 64 y/o female with Hx of Breast CA, Radiation and Chemotherapy presents to ED for stated complaint of a fall after patient was found to the side of her bed by her . Patient states she is fine and that she never fell, but admits to feeling a bit dizzy and as if she would fall. Son is concerned due to slurred speech and only counting 91 of 120 Hollister tablets from a prescription bottle that was filled just yesterday. Patient is adamant that her is lying about the fall, but admits that she takes a lot of Tylenol due to her high level of pain caused by the cancer that has now spread to the bone. No other concerns or complaints expresed at this time. Related Data Home Medications ?Medication ?Instructions ?Recorded ?Confirmed hydrocodone 10 mg-acetaminophen 1 tab PO Q6HR PRN Pain 01/31/22 05/27/24 325 mg tablet albuterol sulfate 90 mcg/actuation 1 puff inhalation Q 8H PRN 05/27/24 05/27/24 aerosol inhaler shortness of breath or wheez ing amoxicillin 875 mg-potassium 1 tab PO Q12H 05/27/24 clavulanate 125 mg tablet cetirizine 10 mg tablet 10 mg PO QDAY 05/27/2405/27 clonazepam 1 mg tablet 1 mg PO Q12H PRN anxiety 05/27/24 gabapentin 300 mg capsule 300 mg PO Q12H 05/27/2405/03 omeprazole 20 mg capsule,delayed 20 mg PO DAILY 05/27/24 release Allergies Allergy/AdvReac Type Severity Reaction Status Date / Time Penicillins Allergy Severe Hives Verified 10/24/24 18:54 Review of Systems Review of Systems Systems Reviewed: All systems reviewed, normal except as documented Past Medical History Past Medical History CARDIAC: Positive Cardiac Disorders RESPIRATORY: Positive Pneumonia (in past) GASTROINTESTINAL: Positive Colitis and Ulcer (history of) REPRODUCTIVE: Positive Breast Cancer and Previous Pregnancies (x8) MUSCULOSKELETAL: Positive Musculoskeletal Disorders and Scoliosis PSYCHO/SOCIAL: Positive Depression and Anxiety OTHER HISTORY: Positive Blood Transfusions, Chemotherapy, Radiation Therapy, Cancer and Breast Cancer Surgical History SURGICAL: Positive Abdominal Surgery ED Exam Narrative Physical exam: Generally patient is alert in no obvious distress heart regular rate and rhythm lungs clear to auscultation equal bilaterally head is normocephalic atraumatic eyes pupils equal round reactive to light abdomen soft bowel sounds present nondistended nontender skin is warm and dry neurologic exam patient alert and oriented not somnolent and moving all extremities equally with normal muscle strength. Course Quality Measures Current suspected stage: sepsis Possible source: unknown Blood cultures ordered: no Antibiotic ordered: No sepsis Orders Category Date Time Status EKG (ED ONLY) *Do not use* NOW Care 10/24/24 19:[address] head/brain wo con Stat Exams 10/24/24 19:04 Completed EKG (ED Only) Stat Exams 10/24/24 19:04 Draft Acetaminophen Stat Lab 10/24/24 19:13 Completed CBC Stat Lab 10/24/24 19:13 Completed CMP [Comprehensive Metabolic Panel] Stat Lab 10/24/24 19:13 Completed Salicylate Stat Lab 10/24/24 19:13 Completed Troponin I Stat Lab 10/24/24 19:13 Completed Troponin I Stat Lab 10/24/24 22:32 Completed UA [Urinalysis] Stat Lab 10/24/24 22:01 Ordered Vital Signs Vital signs: Vital Signs Temperature 98.1 F 10/24/24 19:00 Pulse Rate 82 10/24/24 19:00 Respiratory Rate 16 10/24/24 19:00 Blood Pressure 120/70 10/24/24 19:00 Pulse Oximetry (%) 95 10/24/24 19:00 Oxygen Delivery Method Room Air 10/24/24 19:00 Fall MDM Narrative MDM Narrative:: Scribe Attestation: I, Kathi Morgan, am scribing for and in the presence of Dr. Rossi. Provider Notation: Although this document has been carefully reviewed, there may still be some phonetic and other typographical errors.? These errors are purely grammatical due to imperfections in the software program and should not be construed in any way to? compromise the substance of the patient's medical care during this visit. I interpreted all labs. There was a slight leukocytosis of uncertain significance. Head CT was negative. Aspirin and Tylenol level were not elevated. Patient has not demonstrated alteration of mental status here in the emergency room. I do long discussion with the patient's son who is at bedside and answered all questions. Patient stable for discharge. Patient data External records reviewed:: [facility] [place] previous records (Reviewed prior ED records from 04/02/24. Patient was seen for Colitis.) Clinical information provided by:: patient and family (Son) Social determinants that could affect healthcare access:: mental health (Depression/Anxiety) Patient has the following chronic illnesses:: Scoliosis, Depression, Anxiety, Breast Cancer, Colitis How is presenting disease/condition affected by chronic disease/condition?: exacerbated by Evaluation data The following diagnostics were reviewed and interpreted by me:: lab results, radiology exam(s) and EKG tracing(s) Lab and/or radiology exams considered but not ordered:: None Interpretation Summary: RADIOLOGY Head/Brain CT: Findings: No significant ventricular enlargement. Intra-axial or extra-axial hemorrhage density is not seen. No mass effect or midline shift Basal cisterns are not remarkable. Fourth ventricle is midline. Cranial vault intact. Impression: Negative for acute hemorrhage, mass effect or midline shift Medications / Prescriptions Medications or Prescriptions considered but not ordered:: None Medication administrations:: See above if any Consultations Consultation(s) initiated? (list below): No Diagnosis Fall Differential Diagnosis: syncope, compression fracture, concussion with loss of consciousness and concussion without loss of consciousness Most likely diagnosis given after review of the tests above:: None Admission Indicated Admission indicated?: not indicated Explain why admission is indicated or not indicated:: Patient does not meet admission criteria. Admission Request Was there a request for admission?: No Disposition Plan Disposition Plan: Discharge Discharge Attestation Discharge Attestation: The patient and all family members were given an opportunity to ask questions and understood the discharge instructions. Discharge instructions specifically effects, indications for sooner follow up or return to the emergency department, and the expected course of current diagnosis. Patient condition: Stable Discharge Plan Plan Patient Disposition: HOME (Self Care) Prescriptions/Referrals Prescriptions/Med Rec: No Action clonazepam 1 mg tablet 1 mg PO Q12H PRN (Reason: anxiety) Patient Comments: TAKE ONE TABLET BY MOUTH TWICE DAILY albuterol sulfate 90 mcg/actuation HFA aerosol inhaler 1 puff INHALATION Q8H PRN (Reason: shortness of breath or wheezing) Patient Comments: INHALE 2 PUFFS BY MOUTH FOUR TIMES A DAY NEEDED FOR COUGH AND SHORTNESS OF BREATH amoxicillin-pot clavulanate 875-125 mg tablet 1 tab PO Q12H Patient Comments: TAKE ONE TABLET BY MOUTH TWICE DAILY FOR INFECTION cetirizine 10 mg tablet 10 mg PO QDAY gabapentin 300 mg capsule 300 mg PO Q12H Patient Comments: TAKE ONE CAPSULE BY MOUTH TWICE DAILY FOR NERVE PAIN omeprazole 20 mg capsule,delayed release(DR/EC) 20 mg PO DAILY Patient Comments: TAKE ONE CAPSULE BY MOUTH EVERY MORNING 30 MINUTES BEFORE MEALS hydrocodone-acetaminophen 10-325 mg tablet 1 tab PO Q6HR PRN (Reason: Pain) Patient Comments: TAKE ONE TABLET BY MOUTH EVERY 6 HOURS NEEDED FOR PAIN Referrals: [facility]),TRACY Kearns [Primary Care Provider] - In 1 week Problem List Clinical Impression: Lethargy Patient/Caregiver Discharge Instructions Additional Instructions: Continue all current medications and take only as prescribed. Follow-up with your doctor as needed for further treatment and evaluation. Print Language: Kyrgyz Stand Alone Forms: Kate Award Info., Patient Portal Info Letter
[2024-10-24 19:57] LABS: Acetaminophen 3.8 mcg/mL (10.0-20.0); Alanine Aminotransferase 83 U/L (10-49); Albumin, Serum 4.4 gm/dL (3.4-4.8); Albumin/Globulin Ratio 1.8 (1.2-2.2); Alkaline Phosphatase 71 U/L (46-116); Anion Gap 11 (7-16); Aspartate Amino Transferase 99 U/L (0-34); BUN/Creatinine Ratio 15 Ratio (12-20); Bilirubin,Total 0.5 mg/dL (0.3-1.2); Blood Urea Nitrogen 15 mg/dL (9-23); Calcium 9.2 mg/dL (8.3-10.6); Calcium (Corrected) 9.2 mg/dL (8.5-10.1); Carbon Dioxide 23.8 mMol/L (20.0-31.0); Chloride 108 mMol/L (98-107); Creatinine (Component) 1.0 mg/dL (0.6-1.3); Estimated Creatinine Clearance 45.1 mL/min (>60); Globulin 2.5 gm/dL (2.3-3.5); Glucose 199 mg/dL (74-106); Osmolality,Calculated 291 (275-295); Potassium 3.4 mMol/L (3.4-5.1); Salicylate < 3.0 mg/dL; Sodium 143 mMol/L (136-145); Total Protein 6.9 gm/dL (5.7-8.2); eGFR > 60 See Note
[2024-10-24 20:02] LABS: Troponin I 0.091 ng/mL (0.0-0.045)
[2024-10-24 23:37] LABS: Troponin I 0.082 ng/mL (0.0-0.045)
== END 2024-10-25 00:18 | disposition home or self-care (01) ==
PROVIDERS: Nurse Practitioner Family; Emergency Provider Emergency Medicine; PCP Nurse Practitioner Family
DX: S09.90XA Unspecified injury of head, initial encounter (principal); R53.83 Other fatigue; D72.829 Elevated white blood cell count, unspecified; W06.XXXA Fall from bed, initial encounter
CPT/HCPCS: 36415; 70450; 80053; 80329; 81001; 84484; 85025; 93005; 99283; G0480

== ENCOUNTER → 2024-12-29 | Outpatient (CLI) | payer MEDICARE, MEDICAID, SELFPAY ==
[2024-12-28 14:45] LABS: Basophils # (Auto) 0.0 Thou/mm3 (0.0-0.2); Basophils % (Auto) 1 % (0-2.5); Eosinophils # (Auto) 0.0 Thou/mm3 (0.0-0.5); Eosinophils % (Auto) 0 % (0-10); Hematocrit 41.1 % (36.0-46.0); Hemoglobin 13.3 g/dL (12.0-16.0); Immature Granulocytes Auto 0.01 Thou/mm3 (0.00-0.00); Lymphocytes # (Auto) 1.5 Thou/mm3 (1.0-4.8); Lymphocytes % (Auto) 23 % (10-50); Mean Corpuscular HGB Conc 32.4 g/dl (31.0-37.0); Mean Corpuscular Hemoglobin 31.6 pg (25.0-35.0); Mean Corpuscular Volume 98 fL (80-100); Monocytes # (Auto) 0.3 Thou/mm3 (0.0-0.8); Monocytes % (Auto) 5 % (0-12); Neutrophils # (Auto) 4.6 Thou/mm3 (1.8-7.7); Neutrophils % (Auto) 71 % (37-80); Nucleated Red Blood Cell # 0.00 Thou/mm3 (0.00-0.00); Nucleated Red Blood Cell % 0 /100 WBC (0); Platelet Count 234 Thou/mm3 (140-440); RDW Standard Deviation 44.7 fL (36.4-46.3); Red Blood Count 4.21 Miln/mm3 (4.00-5.20); White Blood Count 6.5 Thou/mm3 (3.6-11.0)
[2024-12-28 14:58] LABS: Alanine Aminotransferase 17 U/L (10-49); Albumin, Serum 4.2 gm/dL (3.4-4.8); Albumin/Globulin Ratio 2.0 (1.2-2.2); Alkaline Phosphatase 72 U/L (46-116); Anion Gap 8 (7-16); Aspartate Amino Transferase 22 U/L (0-34); BUN/Creatinine Ratio 13 Ratio (12-20); Bilirubin,Total 0.6 mg/dL (0.3-1.2); Blood Urea Nitrogen 9 mg/dL (9-23); Calcium 9.8 mg/dL (8.3-10.6); Calcium (Corrected) 9.8 mg/dL (8.5-10.1); Carbon Dioxide 30.4 mMol/L (20.0-31.0); Chloride 105 mMol/L (98-107); Creatinine (Component) 0.7 mg/dL (0.6-1.3); Globulin 2.1 gm/dL (2.3-3.5); Glucose 121 mg/dL (74-106); Osmolality,Calculated 284 (275-295); Potassium 4.5 mMol/L (3.4-5.1); Sodium 143 mMol/L (136-145); Total Protein 6.3 gm/dL (5.7-8.2); eGFR > 60 See Note
--- NOTE | 2024-12-29 15:54 | XR_ITS ---
Examination: CT chest with intravenous contrast CT abdomen with intravenous contrast CT pelvis with intravenous contrast 2-D coronal and sagittal reconstructions Time of exam: December 29, 2024, 1316 hrs., Comparison nuclear medicine bone scan July 24, 2024, PET/CT scan May 14, 2024, CT abdomen pelvis April 01, 2024 Indications: Diagnosis malignant neoplasm upper outer quadrant right female breast, CT pelvis April 01, 2024 sclerotic L3 vertebral body, left iliac bone with small radiolucencies and posterior both iliac bones, sclerosis anterior inferior right pubic ramus, subtle multiple areas of enhancement throughout all visualized lumbar vertebral bodies on MRI lumbar spine May 08, 2024, restaging CTDI: vol (mGy) : 4.8 DLP: (mGycm): 309 Technique: Multiple axial images of the chest, abdomen and pelvis with intravenous contrast, 3.0 mm slice thickness. Images obtained post intravenous injection Isovue 370 60 cc 2-D sagittal and coronal reconstructions. Low dose protocols were performed. One or more of the following dose reduction techniques were used; automated exposure control, adjustment of the mA and/or KV according to patient size, use of iterative reconstruction technique. Findings: No thoracic aortic aneurysm dilatation No pulmonary artery emboli Right mastectomy No breast chest wall lesion or axillary lymphadenopathy No mediastinal lymphadenopathy No pneumonia, pleural disease or pulmonary nodules No visualized liver or splenic lesion Absent gallbladder Common bile duct 7 mm Aorta normal in size in the abdomen, no abdominal or pelvic lymphadenopathy No bowel obstruction Atrophic uterus Urinary bladder intact The subtle diffuse sclerosis in the L3 vertebral body is unchanged compared with April 01, 2024 The subtle radiolucencies in the L5 vertebral body and posterior iliac bones are also stable compared with April 01, 2024 The small sclerotic area in the anterior inferior pubic ramus is stable compared with April 01, 2024 No interval osteolytic or osteoblastic lesions are depicted Impression: No interval mediastinal lymphadenopathy No interval pneumonia, pulmonary edema, pleural disease or pulmonary nodules No interval abdominal lymphadenopathy The subtle osseous changes involving the lumbar vertebral bodies, iliac bones and right anterior inferior pubic ramus stable compared to the CT abdomen pelvis April 01, [address] abdomen and pelvis January 01, 2019
== END | disposition home or self-care (01) ==
LOC: CCTX 15:38
PROVIDERS: Referring Provider Internal Medicine Hematology & Oncology; Visit Provider Internal Medicine Hematology & Oncology
DX: M48.8X6 Other specified spondylopathies, lumbar region (principal); C50.411 Malignant neoplasm of upper-outer quadrant of right female breast
CPT/HCPCS: 36415; 71260; 74177; 80053; 85025; A4649; Q9967

== ENCOUNTER → 2025-01-22 | Outpatient (CLI) | payer MEDICARE, MEDICAID, SELFPAY ==
[2025-01-22 13:08] LABS: Collection Type, Urine Clean Catch
[2025-01-22 13:24] LABS: Basophils # (Auto) 0.0 Thou/mm3 (0.0-0.2); Basophils % (Auto) 1 % (0-2.5); Eosinophils # (Auto) 0.0 Thou/mm3 (0.0-0.5); Eosinophils % (Auto) 0 % (0-10); Hematocrit 42.5 % (36.0-46.0); Hemoglobin 13.7 g/dL (12.0-16.0); Immature Granulocytes Auto 0.02 Thou/mm3 (0.00-0.00); Lymphocytes # (Auto) 1.4 Thou/mm3 (1.0-4.8); Lymphocytes % (Auto) 23 % (10-50); Mean Corpuscular HGB Conc 32.2 g/dl (31.0-37.0); Mean Corpuscular Hemoglobin 31.5 pg (25.0-35.0); Mean Corpuscular Volume 98 fL (80-100); Monocytes # (Auto) 0.4 Thou/mm3 (0.0-0.8); Monocytes % (Auto) 6 % (0-12); Neutrophils # (Auto) 4.5 Thou/mm3 (1.8-7.7); Neutrophils % (Auto) 71 % (37-80); Nucleated Red Blood Cell # 0.00 Thou/mm3 (0.00-0.00); Nucleated Red Blood Cell % 0 /100 WBC (0); Platelet Count 248 Thou/mm3 (140-440); RDW Standard Deviation 45.1 fL (36.4-46.3); Red Blood Count 4.35 Miln/mm3 (4.00-5.20); White Blood Count 6.4 Thou/mm3 (3.6-11.0)
[2025-01-22 13:31] LABS: Bilirubin,Urine 1+ (Negative); Blood,Urine Trace (Negative); Clarity,Urine Clear (Clear/Hazy); Color,Urine Yellow (Lt Yel-Yel); Glucose, Urine Negative (Negative); Hyaline Casts,Urine < 1 /hpf (0-1); Ketones,Urine Negative (Negative); Leukocyte Esterase,Urine Positive (Negative); Nitrite,Urine Negative (Negative); PH,Urine 6.0 (5.0-7.0); Protein,Urine 1+ (Neg - Trace); RBC,Urine 10 /hpf (0-3); Specific Gravity,Urine 1.043 (1.001-1.035); Squamous Epithelial Cell,Urine 5 /hpf (0-5); Urobilinogen,Urine 2.0 mg/dL (0.0-1.0); WBC,Urine 2 /hpf (0-5)
[2025-01-22 13:32] LABS: Glucose Estimated Average 111 mg/dL (80-131); Hemoglobin A1C 5.5 % Hgb (4.8-6.0)
[2025-01-22 13:34] LABS: Microalbumin, Random Urine 15 mg/L (0-300)
[2025-01-22 13:44] LABS: Creatinine MALB Rnd Ur 289 mg/dL (30-125); Microalbumin Creat Ratio 5 mg/gCrea (<30)
[2025-01-22 13:47] LABS: Anion Gap 8 (7-16); BUN/Creatinine Ratio 15 Ratio (12-20); Bilirubin,Direct 0.2 mg/dL (0.0-0.3); Bilirubin,Total 0.5 mg/dL (0.3-1.2); Blood Urea Nitrogen 12 mg/dL (9-23); Calcium 9.7 mg/dL (8.3-10.6); Carbon Dioxide 30.9 mMol/L (20.0-31.0); Chloride 103 mMol/L (98-107); Creatinine (Component) 0.8 mg/dL (0.6-1.3); Glucose 104 mg/dL (74-106); Osmolality,Calculated 282 (275-295); Potassium 5.4 mMol/L (3.4-5.1); Sodium 142 mMol/L (136-145); eGFR > 60 See Note
[2025-01-22 13:48] LABS: Alanine Aminotransferase 12 U/L (10-49); Albumin, Serum 5.0 gm/dL (3.4-4.8); Albumin/Globulin Ratio 2.6 (1.2-2.2); Alkaline Phosphatase 68 U/L (46-116); Aspartate Amino Transferase 20 U/L (0-34); Calcium (Corrected) 9.7 mg/dL (8.5-10.1); Cardiac Risk Estimate 3.1 RATIO (3.7-5.6); Cholesterol 172 mg/dL (132-200); Free T4 (Free Thyroxine) 1.07 ng/dL (0.89-1.76); Globulin 1.9 gm/dL (2.3-3.5); HDL Cholesterol 56 mg/dL (40-60); LDL Cholesterol,Calculated 101 mg/dL (0-130); Thyroid Stimulating Hormone 0.99 uIU/mL (0.55-4.78); Total Protein 6.9 gm/dL (5.7-8.2); Triglycerides 73 mg/dL (30-150)
== END | disposition home or self-care (01) ==
LOC: COPL 12:22
PROVIDERS: PCP Nurse Practitioner Family; Referring Provider Nurse Practitioner Family; Visit Provider Internal Medicine Cardiovascular Disease
DX: I95.9 Hypotension, unspecified (principal); I12.9 Hypertensive chronic kidney disease with stage 1 through stage 4 chronic kidney disease, or unspecified chronic kidney disease; N18.30 Chronic kidney disease, stage 3 unspecified; E78.5 Hyperlipidemia, unspecified; Z13.1 Encounter for screening for diabetes mellitus; Z13.220 Encounter for screening for lipoid disorders
CPT/HCPCS: 36415; 80053; 80061; 81001; 82043; 82248; 82570; 83036; 84439; 84443; 85025

== ENCOUNTER → 2025-03-01 | Outpatient (CLI) | payer MEDICARE, MEDICAID, SELFPAY ==
[2025-03-01 15:25] LABS: Collection Type, Urine Clean Catch
[2025-03-01 15:52] LABS: Potassium 3.4 mMol/L (3.4-5.1)
[2025-03-01 15:56] LABS: Amphetamine/Methamp Scrn,U Negative (Negative); Barbiturate Screen,Urine Negative (Negative); Benzodiazepines Screen,Urine Negative (Negative); Benzoylecgonine Screen, Ur Negative (Negative); Fentanyl Screen,Urine Negative (Negative); Opiate Screen,Urine Positive (Negative); THC Screen,Urine Negative (Negative)
[2025-03-01 15:59] LABS: Bilirubin,Urine Negative (Negative); Blood,Urine Negative (Negative); Clarity,Urine Clear (Clear/Hazy); Color,Urine Lt-Yellow (Lt Yel-Yel); Glucose, Urine Negative (Negative); Ketones,Urine Trace (Negative); Leukocyte Esterase,Urine Negative (Negative); Nitrite,Urine Negative (Negative); PH,Urine 6.0 (5.0-7.0); Protein,Urine Negative (Neg - Trace); RBC,Urine 2 /hpf (0-3); Specific Gravity,Urine 1.029 (1.001-1.035); Squamous Epithelial Cell,Urine 1 /hpf (0-5); Urobilinogen,Urine Negative mg/dL (0.0-1.0); WBC,Urine 1 /hpf (0-5)
== END | disposition home or self-care (01) ==
LOC: COPL 14:53
PROVIDERS: PCP Family Medicine; Referring Provider Nurse Practitioner Family; Visit Provider Nurse Practitioner Family
DX: R80.9 Proteinuria, unspecified (principal); Z79.891 Long term (current) use of opiate analgesic; E87.5 Hyperkalemia
CPT/HCPCS: 36415; 80307; 81001; 84132